=== PATIENT | male | born 1930 | race Two or more races ===

== ENCOUNTER 2018-01-18 15:05 | Outpatient (CLI) | payer OTHER ==
[~2018-01-18 15:05] MED LIST: ADVAIR 100-501 EACH; ADVAIR HFA 230/12 GM; ALPRAZOLAM2 M1; KEFLEX250 MG PO; MELOXICAM15 MG; OMEPRAZOLE40 MG; QUETIAPINE FUM100 MG; SIMVASTATIN5 MG; SPIRIVA RESPIMAT4 G1; SPIRIVA RESPIMAT4 G1 IH; TAMULOSIN; URIN D.S. TABLE1 TAB PO; XANAX2 MG
== END 2018-01-18 15:19 | disposition home or self-care (01) ==
LOC: RAD 15:05
DX: N35.8 Other urethral stricture (principal); Z01.818 Encounter for other preprocedural examination

== ENCOUNTER 2018-01-26 07:07 | Day surgery (SDC) | payer OTHER ==
[2018-01-26] MEDS ORDERED: CEFUROXIME500 MG PO (10:34)
[2018-01-27] MEDS ORDERED: TAMS0.4C PO (11:47)
== END 2018-01-26 13:25 | disposition home or self-care (01) ==
LOC: CIR.AMB 07:07
DX: N32.0 Bladder-neck obstruction (principal); N21.0 Calculus in bladder

== ENCOUNTER 2018-01-27 11:34 | Inpatient (IN) | payer OTHER ==
[~2018-01-27] VITALS: Ht 175.3 cm; Wt 49.9 kg
[~2018-01-27 11:34] MED LIST changes: +CEFUROXIME500 MG PO
[2018-01-27] MEDS ORDERED: TAMS0.4C PO ×2 (11:47)
[2018-02-05] MEDS ORDERED: TAMS0.4C PO ×2 (12:42)
[2018-02-05] MEDS ORDERED: SPIRIVA RESPIMAT4 G1 IH ×2 (12:49)
[2018-02-05] MEDS ORDERED: SIMVASTATIN5 MG PO ×2 (12:52)
[2018-02-05] MEDS ORDERED: OMEPRAZOLE40 MG PO ×2 (12:54)
[2018-02-05] MEDS ORDERED: QUETIAPINE FUM100 MG PO ×2 (12:54)
[2018-02-05] MEDS ORDERED: PRE PROTEIN 2030 ML PO ×2 (12:57)
[2018-02-05] MEDS ORDERED: FOLIC ACID1 MG PO ×2 (13:01)
[2018-02-05] MEDS ORDERED: PYRIDOXINE HCL100 M1 PO ×2 (13:04)
[2018-02-05] MEDS ORDERED: INTESTINEX680 M1 PO ×2 (13:17)
[2018-02-05] MEDS ORDERED: Megace PO ×2 (13:21)
[2018-02-05] MEDS ORDERED: XANAX2 MG PO ×2 (13:21)
[2018-02-05] MEDS ORDERED: Neurin-Sl Tablet Sl SL ×2 (13:21)
== END 2018-02-05 20:28 | disposition home or self-care (01) | DRG 871 ==
LOC: ER 11:34 → SEC-K 18:49 → MEDJ 18:49
PROC: 4A033R1 Measurement of Arterial Saturation, Peripheral, Percutaneous Approach (ICD-10-PCS; principal; 2018-01-27)
PROC: 3E0F7GC Introduction of Other Therapeutic Substance into Respiratory Tract, Via Natural or Artificial Opening (ICD-10-PCS; 2018-01-27)
PROC: 30233N1 Transfusion of Nonautologous Red Blood Cells into Peripheral Vein, Percutaneous Approach (ICD-10-PCS; 2018-01-28)
PROC: B020ZZZ Computerized Tomography (CT Scan) of Brain (ICD-10-PCS; 2018-01-29)
DX: A41.9 Sepsis, unspecified organism (principal); I50.23 Acute on chronic systolic (congestive) heart failure; N39.0 Urinary tract infection, site not specified; F03.91 Unspecified dementia, unspecified severity, with behavioral disturbance; E46 Unspecified protein-calorie malnutrition; N13.8 Other obstructive and reflux uropathy; B96.1 Klebsiella pneumoniae [K. pneumoniae] as the cause of diseases classified elsewhere; Z16.39 Resistance to other specified antimicrobial drug; J43.8 Other emphysema; Z78.1 Physical restraint status; N40.1 Benign prostatic hyperplasia with lower urinary tract symptoms; Z74.01 Bed confinement status; K52.89 Other specified noninfective gastroenteritis and colitis; E86.0 Dehydration; E88.09 Other disorders of plasma-protein metabolism, not elsewhere classified; I11.0 Hypertensive heart disease with heart failure; D52.8 Other folate deficiency anemias; Z53.09 Procedure and treatment not carried out because of other contraindication

== ENCOUNTER → 2018-02-06 | Emergency (ER) | payer OTHER ==
[~2018-02-06] VITALS: Ht 180.3 cm; Wt 40.8 kg
[~2018-02-06] MED LIST changes: +FOLIC ACID1 MG PO; +INTESTINEX680 M1 PO; +Megace PO; +Neurin-Sl Tablet Sl SL; +OMEPRAZOLE40 MG PO; +PRE PROTEIN 2030 ML PO; +PYRIDOXINE HCL100 M1 PO; +QUETIAPINE FUM100 MG PO; +SIMVASTATIN5 MG PO; +TAMS0.4C PO; +XANAX2 MG PO
== END | disposition home or self-care (01) ==
LOC: ER 10:16
DX: T83.03 Leakage of urinary catheter (principal); Y73.1 Therapeutic (nonsurgical) and rehabilitative gastroenterology and urology devices associated with adverse incidents; Y83.8 Other surgical procedures as the cause of abnormal reaction of the patient, or of later complication, without mention of misadventure at the time of the procedure

== ENCOUNTER → 2018-02-11 | Emergency (ER) | payer OTHER | END | disposition left against medical advice (07) | LOC: ER 20:10 | DX: Z53.20 Procedure and treatment not carried out because of patient's decision for unspecified reasons (principal) ==

== ENCOUNTER 2018-09-14 18:30 | Emergency (ER) | payer OTHER ==
[~2018-09-14] VITALS: Ht 177.8 cm; Wt 68.0 kg
[2018-09-15] MEDS ORDERED: PEPCID AC20 MG PO (07:15)
== END 2018-09-15 07:13 | disposition home or self-care (01) ==
LOC: ER 18:30
DX: K29.60 Other gastritis without bleeding (principal); E86.0 Dehydration; S00.03XA Contusion of scalp, initial encounter; G30.8 Other Alzheimer's disease; F02.80 Dementia in other diseases classified elsewhere, unspecified severity, without behavioral disturbance, psychotic disturbance, mood disturbance, and anxiety; W01.198A Fall on same level from slipping, tripping and stumbling with subsequent striking against other object, initial encounter; Y93.E8 Activity, other personal hygiene; Y99.8 Other external cause status; Y92.231 Patient bathroom in hospital as the place of occurrence of the external cause

== ENCOUNTER 2019-02-13 18:36 | Emergency (ER) | payer OTHER ==
[~2019-02-13] VITALS: Ht 172.7 cm; Wt 59.0 kg
[~2019-02-13 18:36] MED LIST changes: +PEPCID AC20 MG PO
[2019-02-13] MEDS ORDERED: ADVAIR 100-501 EACH IH (19:43)
[2019-02-13] MEDS ORDERED: PROTONIX40 MG PO (19:44)
== END 2019-02-13 21:54 | disposition home or self-care (01) ==
LOC: ER 18:36 → CPU-OBS 18:52 → ER 21:54
DX: R07.89 Other chest pain (principal); R42 Dizziness and giddiness

== ENCOUNTER → 2019-03-14 | Emergency (ER) | payer OTHER ==
[~2019-03-14] VITALS: Ht 180.3 cm; Wt 60.8 kg
[~2019-03-14] MED LIST changes: +ADVAIR 100-501 EACH IH; +PROTONIX40 MG PO
== END | disposition home or self-care (01) ==
LOC: ER 09:45
DX: K59.09 Other constipation (principal)

== ENCOUNTER 2019-10-15 19:09 | Emergency (ER) | payer OTHER, BC ==
[~2019-10-15] VITALS: Ht 177.8 cm; Wt 72.6 kg
[2019-10-15] MEDS ORDERED: ZYRTEC10 M3 (19:24)
[2019-10-15] MEDS ORDERED: RESTORIL30 M1 (19:24)
[2019-10-15] MEDS ORDERED: ASPIR 8181 MG (19:24)
[2019-10-15] MEDS ORDERED: ZANTAC150 M3 (19:24)
[2019-10-15] MEDS ORDERED: MELATONIN1 MG (19:25)
[2019-10-15] MEDS ORDERED: SEROQUEL50 MG (19:25)
[2019-10-15] MEDS ORDERED: XANAX2 MG (19:25)
== END 2019-10-15 22:04 | disposition home or self-care (01) ==
LOC: ER 19:09
DX: K29.60 Other gastritis without bleeding (principal); R10.13 Epigastric pain

== ENCOUNTER 2019-10-20 10:33 | Emergency (ER) | payer OTHER, BC ==
[~2019-10-20] VITALS: Ht 180.3 cm; Wt 77.1 kg
[~2019-10-20 10:33] MED LIST changes: +ASPIR 8181 MG; +MELATONIN1 MG; +RESTORIL30 M1; +SEROQUEL50 MG; +ZANTAC150 M3; +ZYRTEC10 M3
== END 2019-10-20 14:10 | disposition home or self-care (01) ==
LOC: ER 10:33
DX: S01.121A Laceration with foreign body of right eyelid and periocular area, initial encounter (principal); W06.XXXA Fall from bed, initial encounter; Y93.89 Activity, other specified; Y92.013 Bedroom of single-family (private) house as the place of occurrence of the external cause; Y99.8 Other external cause status

== ENCOUNTER 2019-11-09 14:15 | Emergency (ER) | payer OTHER, BC ==
[~2019-11-09] VITALS: Ht 180.3 cm; Wt 54.4 kg
[2019-11-09] MEDS ORDERED: PROTONIX20 MG PO (14:58)
== END 2019-11-09 17:04 | disposition home or self-care (01) ==
LOC: ER 14:15
DX: Z48.02 Encounter for removal of sutures (principal)

== ENCOUNTER 2020-02-27 09:28 | Emergency (ER) | payer OTHER, BC ==
[~2020-02-27] VITALS: Ht 165.1 cm; Wt 54.4 kg
[~2020-02-27 09:28] MED LIST changes: +PROTONIX20 MG PO
[2020-02-27] MEDS ORDERED: PROTONIX40 M1 PO (09:33)
[2020-02-27] MEDS ORDERED: XANAX0.25 MG PO ×2 (09:34→13:26)
[2020-02-27] MEDS ORDERED: SEROQUEL50 MG PO (09:34)
[2020-02-27] MEDS ORDERED: MECLIZINE HCL25 MG PO (13:26)
[2020-02-27] MEDS ORDERED: ADVAIR HFA 115/12 GM IH (13:26)
[2020-02-27] MEDS ORDERED: MUPIROCIN1 G1 TOP (13:26)
== END 2020-02-27 14:24 | disposition home or self-care (01) ==
LOC: ER 09:28
DX: S01.81XA Laceration without foreign body of other part of head, initial encounter (principal); R42 Dizziness and giddiness; F41.8 Other specified anxiety disorders; G30.8 Other Alzheimer's disease; F02.80 Dementia in other diseases classified elsewhere, unspecified severity, without behavioral disturbance, psychotic disturbance, mood disturbance, and anxiety; W01.118A Fall on same level from slipping, tripping and stumbling with subsequent striking against other sharp object, initial encounter; Y93.89 Activity, other specified; Y92.018 Other place in single-family (private) house as the place of occurrence of the external cause; Y99.8 Other external cause status

== ENCOUNTER 2021-03-11 16:16 | Emergency (ER) | payer OTHER ==
[~2021-03-11] VITALS: Ht 177.8 cm; Wt 54.0 kg
[~2021-03-11 16:16] MED LIST changes: +ADVAIR HFA 115/12 GM IH; +MECLIZINE HCL25 MG PO; +MUPIROCIN1 G1 TOP; +PROTONIX40 M1 PO; +SEROQUEL50 MG PO; +XANAX0.25 MG PO
[2021-03-11] MEDS ORDERED: PYRIDIUM200 MG PO (21:18)
[2021-03-11] MEDS ORDERED: ACETAMINOPHEN650 M2 PO (21:18)
[2021-03-11] MEDS ORDERED: LEVOFLOXACIN500 MG PO (21:18)
[2021-03-11] MEDS ORDERED: ORPHENADRINE C100 MG PO (21:18)
== END 2021-03-11 22:36 | disposition home or self-care (01) ==
LOC: ER 16:16
DX: N39.0 Urinary tract infection, site not specified (principal); R31.29 Other microscopic hematuria; K59.09 Other constipation; K86.2 Cyst of pancreas; N28.89 Other specified disorders of kidney and ureter; K40.90 Unilateral inguinal hernia, without obstruction or gangrene, not specified as recurrent; M25.551 Pain in right hip; R10.31 Right lower quadrant pain; M54.5 Low back pain

== ENCOUNTER 2021-11-22 17:34 | Inpatient (IN) | payer OTHER ==
[~2021-11-22] VITALS: Ht 167.6 cm; Wt 45.4 kg
[~2021-11-22 17:34] MED LIST changes: +ACETAMINOPHEN650 M2 PO; +LEVOFLOXACIN500 MG PO; +ORPHENADRINE C100 MG PO; +PYRIDIUM200 MG PO
[2021-11-22] MEDS ORDERED: MELATONIN5 M3 (18:02)
== END 2021-12-04 23:22 | disposition home or self-care (01) | DRG 689 ==
LOC: ER 17:34 → MEDJ 11-23 14:58
PROVIDERS: ADMIT Internal Medicine; ATTEND Internal Medicine
DX: N30.81 Other cystitis with hematuria (principal); A41.51 Sepsis due to Escherichia coli [E. coli]; E86.0 Dehydration; N40.0 Benign prostatic hyperplasia without lower urinary tract symptoms; G30.9 Alzheimer's disease, unspecified; F02.80 Dementia in other diseases classified elsewhere, unspecified severity, without behavioral disturbance, psychotic disturbance, mood disturbance, and anxiety; I10 Essential (primary) hypertension; J44.9 Chronic obstructive pulmonary disease, unspecified